=== PATIENT | female | born 1985 | race Hispanic/Latino ===

== ENCOUNTER 2018-01-30 07:34 | Outpatient (CLI) | payer OTHER | END 2018-01-30 07:35 | disposition home or self-care (01) | LOC: ECHO 07:34 | PROVIDERS: ATTEND Internal Medicine | DX: I07.1 Rheumatic tricuspid insufficiency (principal); I37.1 Nonrheumatic pulmonary valve insufficiency | CPT/HCPCS: 93306 ==